=== PATIENT | female | born 1985 | race Caucasian/White ===

== ENCOUNTER → 2016-12-16 | Outpatient (CLI) | payer OTHER ==
[2016-12-16 17:47] LABS: HIV ANTIBODY NEGATIVE (N); HIV-1 P24 ANTIGEN NEGATIVE (N)
[2016-12-19 14:04] LABS: HCV AB SCREEN Negative (Negative); HEPATITIS B SURF AB QL Negative (()); SYPHILIS IGG WITH REFLEX Negative (Negative)
== END ==
LOC: LAB 10:01 → MOB LAB 10:01
PROVIDERS: ATTEND Nurse Practitioner Family
DX: Z11.3 Encounter for screening for infections with a predominantly sexual mode of transmission (principal)
CPT/HCPCS: 86703; 86706; 86780; 86803; 87480; 87491; 87510; 87591; 87660